=== PATIENT | female | born 1960 | race Caucasian/White ===

== ENCOUNTER 2023-01-14 16:06 | Outpatient (REF) | payer MEDICAID, SELFPAY ==
[2023-01-17 22:08] LABS: Varicella IgG Antibody >4000.00 index
== END 2023-01-14 16:07 | disposition home or self-care (01) ==
LOC: HO.HHCL 16:06
PROVIDERS: Visit Provider Nurse Practitioner Family
DX: Z01.84 Encounter for antibody response examination (principal)
CPT/HCPCS: 36415; 86787

== ENCOUNTER → 2023-09-22 10:48 | Outpatient (BNVA) | payer OTHER, SELFPAY | PROVIDERS: PCP Nurse Practitioner Family; Visit Provider Physician Assistant | DX: S46.912A Strain of unspecified muscle, fascia and tendon at shoulder and upper arm level, left arm, initial encounter (principal); S83.91XA Sprain of unspecified site of right knee, initial encounter; W18.30XA Fall on same level, unspecified, initial encounter | CPT/HCPCS: 73564; 99204 ==

== ENCOUNTER → 2023-09-26 08:23 | Outpatient (BNVA) | payer OTHER, SELFPAY | PROVIDERS: PCP Nurse Practitioner Family; Visit Provider Physician Assistant Medical | DX: S46.912A Strain of unspecified muscle, fascia and tendon at shoulder and upper arm level, left arm, initial encounter (principal); S83.91XA Sprain of unspecified site of right knee, initial encounter; W18.30XA Fall on same level, unspecified, initial encounter | CPT/HCPCS: 99213 ==

== ENCOUNTER 2024-11-13 14:34 | Outpatient (REF) | payer MEDICARE, OTHER, SELFPAY ==
--- NOTE | ~2024-11-13 | XR_ITS ---
EXAMINATION: XR KNEE 3 VIEWS LEFT HISTORY: left knee pain COMPARISON: There are no prior studies available for comparison. FINDINGS: Four views of the left knee are submitted. Osseous mineralization is normal. There is no fracture or dislocation. There is moderate to severe osteoarthritis of the patellofemoral compartment and mild to moderate osteoarthritis of the medial compartment, with joint space narrowing and osteophyte formation. The soft tissues are unremarkable. There is no joint effusion. XR/XR knee LT 3V IMPRESSION: Osteoarthritis of the left knee as described. Electronically signed by: Denis Golden MD 11/13/2024 03:48 PM EDT
--- OUTSIDE RECORDS SUMMARY | 2024-11-13 15:21 | XMS_ITS | Encounter Summary ---
Author Organization [employer] Address [address] [place] [address] Care Team Providers Care Rug Shampooer Name Role Phone Sofia Huertas Primary Care Provider [phone] Rosalia Richard NP Primary Care Provider [phone] Laney Gutierres MD Primary Care Provider [phone] Reason for Visit * Reason Onset Date Comments Referral 10/06/2023 Encounter Details Date Type Department Care Team (Late st Contact Info) Description 10/06/2023 Telephone [facility] MEDICINE [address], [place] [phone] Sofia Huertas FNP [address], [place] [phone] Referral Social History Tobacco Use Types Packs/Day Years Used Date Smoking Tobacco: Former Cigarettes 1 33 0 06/13/1979 - 06/19/2012 Passive Smoke Exposure: Past Smokeless Tobacco: Never Alcohol Use Standard Drinks/Week Comments Yes 14 (1 standard drink = 0.6 oz pu re alcohol) 2 glasses of wine nightly Alcohol Answer Date Recorded Q1: How often do you have a drink containing alc ohol? 5 07/23/2022 Q2: How many drinks containi ng alcohol do you have on a typical day when you are drinking? 1 07/23/2022 Q3: How often do you have six or more drinks on one occasion? 2 07/23/2022 Depression Answer Date Recorded Patient Health Questionnaire-9 Score 1 06/23/2022 Housing Stability Answer Date Recorded What is your housing situation today? I have elin rust 02/07/[address] you li ve. Do you have problems with any of the following? None of the above 02/07/2023 Food Insecurity Answer Date Recorded Within the past 12 months, y ou worried that your food would run out before you got money to buy more: Never True 02/07/2023 Within the past 12 months,th e food you bought just didn't last and you didn't have enough money to get more: Never True Transportation Answer Date Recorded In the past 12 months, has l ack of transportation kept you from medical appts, meetings, work or from getting things needed for daily living? No 02/07/2023 Utilities Answer Date Recorded In the past 12 months, has t he electric, gas, oil or water company threatened to shut off services in your home? No 02/07/2023 Depression Answer Date Recorded Patient Health Questionnaire-2 Score 1 06/23/2022 Comments Unknown Sex and Gender Information Value Date Recorded Sex Assigned at Female 02/15/2022 10:21 AM EDT Legal Sex Female 10:21 AM EDT Gender Identity Female 02/15/2022 10:21 AM EDT Sexual Orientation Choose not to disclose 2021 10:21 AM EDT documented as of this encounter Miscellaneous Notes * Telephone Encounter - Brenda Vasquez - 10/06/2023 2:15 PM EDT Tc from pt requesting status on cardiology referral. Requesting referral to be expedited due to recent ER visit a week ago. Please contact pt at [phone] documented in this encounter Plan of Treatment Upcoming Encounters Date Type Department Care Team (Late st Contact Info) Description 03/07/2025 10:00 AM EST Office Visit [facility] OPTOMETRY [address] [place], [place] [phone] Zahra Hall, MEERA [address] [place], [place] [phone] documented as of this encounter Visit Diagnoses Not on filedocumented in this encounter Additional Health Concerns Assessment Noted Time PHQ-9 Depression Total Score: 1 06/24/19 23 10:43 AM EST documented as of this encounter Care Teams Rug Shampooer Relationship Specialty Start Date End Date Sofia Huertas FNP [address] [place] [address] PCP - General Family Medicine 06/23/22 12/15/23 Rosalia Richard NP [address] [place] [address] PCP - General Family Medicine 12/16/23 06/27/24 Laney Gutierres MD [address] [place] [address] PCP - General Family Medicine 06/28/24 documented as of this encounter
--- OUTSIDE RECORDS SUMMARY | 2024-11-13 15:21 | XMS_ITS | Clinical Summary ---
Author Organization [facility] Address [address] [employer] [address] [address] Phone Care Team Providers Care Assistant General Manager Name Role Phone Anoop Nieves MD Primary Care Provider [phone] Pcp, Unknown Unavailable Unavailable Allergies Active Allergy Reactions Criticality Noted Date Comments Codeine Itching 07/06/2017 Meperidine Itching 07/06/2017 Erythromycin Rash Low 02/15/2018 Macrolide Antibiotics Other (See Comments) 09/23/2009 Difficulty swallowing Penicillins Rash Medium 07/06/2017 Oxycodone-Aspirin Itching 07/06/2017 Sulfa (Sulfonamide Antibiotics) Other (See Comments) 09/23/2009 Headache Azithromycin 05/22/2018 Medications lamoTRIgine (LAMICTAL XR) 200 mg TR24 Take 200 mg by mouth daily. Active buPROPion (WELLBUTRIN SR) 100 MG 12 hr tablet Take 100 mg by mouth 2 (two) times a day. Active carisoprodol (SOMA) 350 MG tablet Take 350 mg by mouth as needed. Active fluticasone propionate (FLONASE) 50 mcg/actuation nasal spray 1 spray by Nasal route daily. Active ZOLMitriptan (ZOMIG) 2.5 MG tablet Take 2.5 mg by mouth as needed for migraine. Active Medication-Free Text Vitamin D, oral, 1000 u 30 tablet 11 09/16/2015 Active Active Problems Problem Noted Date Diagnosed Date Malignant melanoma 02/15/2012 Overview (06/08/2014): Malignant melanoma Social History Tobacco Use Types Packs/Day Years Used Date Smoking Tobacco: Former Smokeless Tobacco: Never Education Answer Date Recorded Are you interested in more education? Not on zion e 08/21/2022 Are you concerned about learning? Not on file 08/21/2022 No 08/21/2022 No 08/21/2022 Digital Access Answer Date Recorded No 09/12/2022 No 09/12/2022 No 09/12/2022 Reliable internet access at home? Not on file 09/12/2022 Device with a working camera? Not on file Comments Unknown Sex and Gender Information Value Date Recorded Sex Assigned at Not on file Legal Sex Female 5:50 PM EST Gender Identity Not on file Sexual Orientation Not on file Plan of Treatment Health Maintenance Due Date Last Done Comments Adult Td,Tdap Booster 1960 LIPID PANEL 1960 DEPRESSION SCREENING 1970 SMOKING Hx and SMOKELESS TOB ACCO SCREENING 09/28/1971 HEPATITIS C SCREENING 1976 PNEUMOCOCCAL VACCINES (50+ y ears) (1 of 2 - PCV) 1977 ZOSTER VACCINES (1 of 2) 1977 MAMMOGRAM 1998 COLOGUARD 09/28/2003 COLONOSCOPY 09/28/2003 COLORECTAL CANCER SCREENING 09/28/2003 FIT TEST 09/28/2003 FOBT 09/28/2003 SIGMOIDOSCOPY 09/28/2003 VIRTUAL COLONOSCOPY 09/28/2003 OSTEOPOROSIS SCREENING INITI AL (ONE-TIME) 09/28/2023 COVID-19 VACCINE (2 - 2023-2 5 season) 2023 06/13/2020 RSV VACCINE (1 - 1-dose 75+ series) 2033 HEPATITIS A VACCINES Aged Out No long er eligible based on patient's age to complete this topic HIB VACCINES Aged Out No longer eligi ble based on patient's age to complete this topic MENINGOCOCCAL VACCINES (ACWY) Aged Out No longer eligible based on patient's age to complete this topic MENINGOCOCCAL VACCINES (B) Aged Out N o longer eligible based on patient's age to complete this topic Medical Devices Not on file Insurance C3 ACO C3 ACO Care Teams Assistant General Manager Relationship Specialty Start Date End Date Anoop Nieves MD [address] [facility] [address] [place] [address] PCP - General 08/22/14 Pcp, Unknown 08/22/14 Additional Source Comments The information contained in this document represents components of the legal health record. It is not the complete legal health record.[facility]
--- OUTSIDE RECORDS SUMMARY | 2024-11-13 15:21 | XMS_ITS | Clinical Summary ---
Author Organization [facility] [employer] [facility] Address [address] [place] [address] Phone Care Team Providers Care Stock Dealer Name Role Phone Laney Gutierres MD Primary Care Provider [phone] Allergies Active Allergy Reactions Criticality Noted Date Comments Aspirin 09/26/2024 Azithromycin 09/26/2024 Cefprozil 04/03/2018 Reaction not mentioned Codeine Hives 06/18/2024 Erythromycin Lactobionate 04/03/2018 Reaction not mentioned Erythromycin Stearate 10/08/2020 Lisinopril 09/26/2024 Macrolide Antibiotics 09/26/2024 Ketolides Meperidine 09/26/2024 Methocarbamol 04/03/2018 Reaction not mentioned Other 04/03/2018 Kdc:Yellow Dye+Aspirin+Oxycodone Reaction not mentioned Oxycodone 09/26/2024 Penicillins 04/03/2018 Reaction not mentioned Oxycodone-Aspirin Hives 06/18/2024 Sulfa (Sulfonamide Antibiotics) 04/03/2018 Reaction not mentioned Medications losartan (COZAAR) 25 mg tablet Take 1 tablet (25 mg total) by mouth 1 (one) time each day. Active buPROPion XL (WELLBUTRIN XL) 300 mg 24 hr tablet Take 1 tablet (300 mg total) by mouth 1 (one) time each day in the morning. Active nitroglycerin (NITROSTAT) 0.[address] 1 tablet (0.4 mg total) under the tongue every 5 (five) minutes if needed for chest pain. 4 12/13/19 25 Active fluticasone propionate (FLONASE) 50 mcg/actuation nasal spray Administer 2 sprays into each nostril 1 (one) time each day. Active lamoTRIgine (LaMICtal) 150 mg tablet Take 1 tablet (150 mg total) by mouth 1 (one) time each day. Active oxyBUTYnin XL (DITROPAN-XL) 15 mg 24 hr tablet Take 1 tablet (15 mg total) by mouth 1 (one) time each day. Active hydrocortisone 2.5 % ointment Apply topically 2 (two) times a day. Active acamprosate (CAMPRAL) 333 mg EC tablet Take 2 tablets (666 mg total) by mouth 3 (three) times a day. Do not crush, chew, or split. Active ketoconazole (NIZORAL) 2 % cream Apply topically 1 (one) time each day. Active Active Problems Problem Noted Date Diagnosed Date Benign essential HTN 11/08/2023 Chest pain 11/08/2023 Assessment & Plan (06/18/2024 8:26 AM EST): Patient with previously reported chest pain, she underwent a stress echocardiogram in November 2023 which was normal. Results were reviewed today. Patient denies recurrence of chest discomfort. She is active and denying any exertional anginal symptoms. Advised her to continue with going to the gym and going for walks. She will follow-up if symptoms recur otherwise continue follow-up with primary care physician. GERD without esophagitis 11/08/2023 ADD (attention deficit disorder) 04/03/2018 Back pain 04/03/2018 Migraine 04/03/2018 Bipolar disorder (CMS/HCC V24, CMS/HCC V28) 03/18 Post-nasal drip 03/17/2018 Pulmonary nodule 03/17/2018 Encounters Date Type Department Care Team Description 09/25/2024 Telephone Gastroenterology - [place] [address] [place] [address] Dianne Ledbetter MD special procedure from Last 3 Months Immunizations Name Administration Dates Next Due Moderna SARS-CoV-2 COVID-19, mRNA, LNP-S, preservative free 08/10/2021,04/02/2021,07/11/2020,2020 Surgical History Surgery Date Site/Laterality Comments OTHER SURGICAL HISTORY PROCEDURE: ---- OTHER ----; COMMENT: deviated septum repair OTHER SURGICAL HISTORY PROCEDURE: ---- OTHER ----; COMMENT: salpingo-oophorectomy APPENDECTOMY PROCEDURE: HISTORICAL APPENDECTOMY SECTION PROCEDURE: HISTORICAL DELIVERY OTHER SURGICAL HISTORY PROCEDURE: HISTORICAL MELANOMA Medical History Medical History Date Comments ADD (attention deficit disorder) 04/03/2018 DX:ADD (attention deficit disorder) History of melanoma 04/03/2018 DX:History o f melanoma; COMMENT: Sees derm q 6 months Migraine 04/03/2018 DX:Migraine Back pain 04/03/2018 DX:Back pain Bipolar disorder (CMS/HCC V2 4, CMS/HCC V28) 04/03/2018 DX:Bipolar disorder ([facility]) Family History Medical History Relation Name Comments Other: mitral valve prolapse Mother's side Relation Name Status Comments Mother's side Alive Social History Tobacco Use Types Packs/Day Years Used Date Smoking Tobacco: Former Smokeless Tobacco: Never Alcohol Use Standard Drinks/Week Comments Yes 0 (1 standard drink = 0.6 oz pur e alcohol) Comments Unknown Sex and Gender Information Value Date Recorded Sex Assigned at Female 07/02/2024 11:25 AM EDT Legal Sex Female 8:29 PM EST Gender Identity Female 07/02/2024 11:25 AM EDT Sexual Orientation Not on file Obstetrics History Last Filed Vital Signs Vital Sign Reading Time Taken Comments Blood Pressure 130/80 06/18/2024 8:01 AM EST Pulse 80 06/18/2024 8:01 AM EST Temperature - - Respiratory Rate - - Oxygen Saturation 95% 06/18/2024 8:01 AM EST Inhaled Oxygen Concentration - - Weight 81.6 kg (180 lb) 06/18/2024 8:01 AM EST Height 166.4 cm (5' 5.5 ) 06/18/2024 8:01 AM EST Body Mass Index 29.5 06/18/2024 8:01 AM EST Plan of Treatment Upcoming Encounters Date Type Department Care Team (Late st Contact Info) Description 12/21/2024 11:45 AM EDT Appointment [facility] CT Scan [address] [place] [address] Health Maintenance Due Date Last Done Comments Zoster Vaccines (1 of 2) 2008 Colorectal Cancer Screening: Colonoscopy 03/20/2022 Hepatitis C Screening 03/20/2022 Medicare Annual Wellness Visit 03/20/2022 Osteoporosis Screening (Bone Density Screening) 03/20/2022 Social Influencers of Health Screening 03/20/2022 Falls Risk Assessment 09/28/2023 Hypertension/CHF/CAD Annual BMP Blood Test 11/11/2023 Depression Screening 04/18/2024 COVID-19 Vaccine ( season) 2024 02/21/2024, 03/21/2023, 04/06/2022, Additional history exists Influenza Vaccine (#1) 2024 , 03/06/2023, 02/01/2022, Additional history exists Lung Cancer Screening (Low Dose CT) 12/20/2024 12/21/2023, 12/21/2023, 12/08/2022, Additional history exists Breast Cancer Screening 11/28/2025 11/29/19 24, 11/25/2022, 08/25/2021, Additional history exists Cholesterol Screening (Lipid Panel) 06/24/2027 06/23/2022 DTaP,Tdap,and Td Vaccines (2 - Td or Tdap) 02/02/2032 02/01/2022 RSV Immunization Adult Patients Completed 02/04/2023 Pneumococcal Vaccine: 50+ Years Completed 11/21/2023 HIB Vaccines Aged Out No longer eligi ble based on patient's age to complete this topic HPV Vaccines Aged Out No longer eligi ble based on patient's age to complete this topic Hepatitis A Vaccines Aged Out No long er eligible based on patient's age to complete this topic Hepatitis B Vaccines Aged Out No long er eligible based on patient's age to complete this topic IPV Vaccines Aged Out No longer eligi ble based on patient's age to complete this topic MMR Vaccines Aged Out No longer eligi ble based on patient's age to complete this topic Meningococcal ACWY Vaccine Aged Out N o longer eligible based on patient's age to complete this topic Meningococcal B Vaccine Aged Out No l onger eligible based on patient's age to complete this topic RSV Immunization Patients Under 20 months Aged Out No longer eligible based on patient's age to complete this topic Varicella Vaccines Aged Out No longer eligible based on patient's age to complete this topic Procedures Procedure Name Priority Date/Time Associated Diagnosis Comments CT LUNG SCREENING LOW DOSE Routine 12/21/2023 5:33 PM EDT Encounter for screening for malignant neoplasm of respiratory organs BRIDGETTE SCREENING DIGITAL Routine 11/29/2023 8:38 AM EDT Encounter for screening mammogram for malignant neoplasm of breast from Last 3 Months or Most Recently Relevant to Health Maintenance Results * CT LUNG SCREENING LOW DOSE (12/21/2023 5:33 PM EDT) Anatomical Region Laterality Modality Computed Tomogra phy 12/21/2023 4:07 PM EDT Narrative 12/21/2023 5:33 PM EDT [facility] Diagnostic Imaging Department [address] [place] [address] Patient: ELAINE BELLAMYTONY HernandezB./Age/Sex: 1960 - 63 - F Unit#: [id number] Location/Status: BHAVNA/YRN CLI Mnemonic/Ordering Site: [facility] Ordering Physician: ARIA HENDERSON MD CT Lung Screening Low Dose - 12/21/23 - 1611 Report Status:Signed PROCEDURE: Chest CT INDICATION: Lung cancer screening, former smoker, 45 pack years smoking history TECHNIQUE: Chest CT without contrast. Multi planar reformats were created and interpreted. The examination was performed utilizing dose reduction techniques. Total DLP 167 COMPARISON: 12/02/2022 FINDINGS: LUNGS/PLEURA: Central airways are patent. Elevated right diaphragm with right greater than left basilar atelectasis. Scattered calcified granulomas throughout the lungs are unchanged. No new or suspicious pulmonary nodules. No pleural effusion or pneumothorax. MEDIASTINUM: Thyroid gland is unremarkable. No mediastinal or hilar lymphadenopathy. Cardiac chambers are normal in size. No pericardial effusion. Esophagus is normal. CHEST WALL: No axillary lymphadenopathy or superficial hematoma. UPPER ABDOMEN:Large central hepatic cyst it is unchanged. BONES: Chronic T7 superior endplate deformity. No acute fracture. Mild degenerative changes seen throughout the bones. IMPRESSION: No new or suspicious pulmonary nodules. Lung RADS 1-negative. Recommend continued screening with low-dose chest CT in 12 months. Dictating Physician: DILAN DUMONT MD Electronically Signed by: DILAN DUMONT MD Dic Date/Time: 12/21/231722 Sign date/Time: 12/21/231732 Procedure Note Dilan Dumont MD - 02/01/2024 [facility] Diagnostic Imaging Department [address] [place] [address] Patient: ELÍASTHANGELMIRA./Age/Sex: 1960 - 63 - F Unit#: [id number] Location/Status: SPDICATLS/REG CLI Mnemonic/Ordering Site: [facility] Ordering Physician: ARIA HENDERSON MD CT Lung Screening Low Dose - 12/21/23 - 1611 Report Status:Signed PROCEDURE: Chest CT INDICATION: Lung cancer screening, former smoker, 45 pack years smokinghistory TECHNIQUE: Chest CT without contrast. Multi planar reformats were createdand interpreted. The examination was performed utilizing dose reductiontechniques. Total DLP 167 COMPARISON: 12/02/2022 FINDINGS: LUNGS/PLEURA: Central airways are patent. Elevated right diaphragm withright greater than left basilar atelectasis. Scattered calcified granulomas throughout the lungs are unchanged. No new or suspicious pulmonarynodules. No pleural effusion or pneumothorax. MEDIASTINUM: Thyroid gland is unremarkable. No mediastinal or hilar lymphadenopathy. Cardiac chambers are normal in size. No pericardialeffusion. Esophagus is normal. CHEST WALL: No axillary lymphadenopathy or superficial hematoma. UPPER ABDOMEN:Large central hepatic cyst it is unchanged. BONES: Chronic T7 superior endplate deformity. No acute fracture. Mild degenerative changes seen throughout the bones. IMPRESSION: No new or suspicious pulmonary nodules. Lung RADS 1-negative. Recommend continued screening with low-dose chest CT in 12 months. Dictating Physician: DIALN DUMONT MD Electronically Signed by: DILAN DUMONT MD Dic Date/Time: 12/21/23 172 Sign date/Time: 12/21/23 173 Aria Henderson MD IM CT PROCEDURES Final Result * BRIDGETTE SCREENING DIGITAL (11/29/2023 8:38 AM EDT) Anatomical Region Laterality Modality Mammography 11/29/2023 7:57 AM EDT Narrative 11/29/2023 8:38 AM EDT [facility] Diagnostic Imaging Department [address] [place] [address] Patient: ELMIRA BELLAMY D.O.B./Age/Sex: 1960 - 63 - F Unit#: [id number] Location/Status: SPDIMAM/REG CLI Mnemonic/Ordering Site: [facility] Ordering Physician: SOFIA HUERTAS Bridgette Screening Digital - 11/29/23829 Report Status:Signed HISTORY: The patient is a 63-year-old female presenting for routine screening mammography. FINDINGS: Full-field digital mammography of the breasts bilaterally consisting of tomosynthesis in MLO and CC projection is performed in the [employer] 2000-D unit. Computer aided detection utilizing the Volofy system was utilized. The breasts are again seen to be composed of a combination of fatty and fibroglandular elements (scattered areas of fibroglandular density, category B density as calculated with docTrackrpara software), as also demonstrated on prior studies most recently 11/25/2022 and most remotely 10/05/2016. There is no cluster of microcalcifications, mass, or area of architectural distortion. There is no skin thickening or nipple retraction. IMPRESSION: No mammographic evidence of malignancy. A negative mammogram in the presence of a clinically suspicious palpable abnormality does not preclude the possibility of malignancy or alter the indications for biopsy. BIRADS Code Class 1: Negative PQRI CPT II 3341F Code 29167, 55971 PQRI 225 CPT II 7025F Dictating Physician: TYLER LOZADA MD Electronically Signed by: TYLRE LOZADA MD Dic Date/Time: 11/29/23832 Sign date/Time: 11/29/23837 Procedure Note Tyler Lozada MD - 02/01/2024 [facility] Diagnostic Imaging Department [address] [place] [address] Patient: ZAYDAEDENILSONELMIRA /Age/Sex: 1960 - 63 - F Unit#: [id number] Location/Status: SPDIMAM/REG CLI Mnemonic/Ordering Site: [facility] Ordering Physician: SOFIA HUERTAS Bridgette Screening Digital - 11/29/23 - 829 Report Status:Signed HISTORY: The patient is a 63-year-old female presenting for routinescreening mammography. FINDINGS: Full-field digital mammography of the breasts bilaterallyconsisting of tomosynthesis in MLO and CC projection is performed in the [employer] 2000-D unit. Computer aided detection utilizing the iCAD system wasutilized. The breasts are again seen to be composed of a combination of fatty and fibroglandular elements (scattered areas of fibroglandular density,category B density as calculated with Lat49 Volpara software), as also demonstratedon prior studies most recently 11/25/2022 and most remotely 10/05/2016. Thereis no cluster of microcalcifications, mass, or area of architectural distortion.There is no skin thickening or nipple retraction. IMPRESSION: No mammographic evidence of malignancy. A negative mammogram in the presence of a clinically suspicious palpable abnormality does not preclude the possibility of malignancy or alter the indications for biopsy. BIRADS Code Class 1: Negative PQRI CPT II 3341F Code 83881, 17612 PQRI 225 CPT II 7025F Dictating Physician: TYLER LOZADA MD Electronically Signed by: TYLER LOZADA MD Dic Date/Time: 11/29/23832 Sign date/Time: 11/29/23837 Sofia Huertas IM BI PROCEDURES Final Result from Last 3 Months or Most Recently Relevant to Health Maintenance Insurance MEDICARE MEDICAID - [place] Care Teams Stock Dealer Relationship Specialty Start Date End Date Laney Gutierres MD [address] [place] [address] PCP - General Subassembly Assembler 09/25/24
--- OUTSIDE RECORDS SUMMARY | 2024-11-13 15:21 | XMS_ITS | Patient Health Record ---
Author Organization [facility] Address [address] [place] [address] [address] [place], [place] [id number] Care Team Providers Care Knitting Supervisor Name Role Phone Anoop Nieves MD Primary Care Provider Unavaila Ivory Borden Unavailable [phone] Allergies Allergen (clinical drug ingredient) Drug/Non Drug Allergy documented on EMR Reaction Allergy Type Onset Date Status erythromycin Erythromycin hives Drug Allergy A ctive Percodan hives Drug Allergy Active sulfa hives Drug Allergy Active Penicillin hives Drug Allergy Active codeine Codeine hives Drug Allergy Active Reason For Referral No Information Medications Medication SIG (Take, Route, Frequency, Duration) Notes Start Date End Date Status LaMICtal 150 MG 1 tablet Orally once a day Active [facility] Allergy Relief-D 5-120 MG TAKE 1 TABLET BY MOUTH EVERY 12 HOURS NEEDED FOR ALLERGY Oral; Duration: 10 Active buPROPion HCl ER (XL) 150 MG TAKE 1 TABLET BY MOUTH EVERY DAY Oral; Duration: 90 Active oxyBUTYnin Chloride ER 15 MG TAKE 1 TABLET BY MOUTH ONCE DAILY Oral; Duration: 90 Active CPAP DX: PAUL G47.33 as directed auto C PAP 5-20 cm H2o, fit for mask SIG DATE:07/27/18 During sleep nightly for the treatment of sleep apnea; Duration: lifetime 07/27/2018 Active Problems Problem Type SNOMED Code ICD Code Onset Dates Problem Status W/U Status Risk Notes Problem Obstructive sleep apnea syndrome (23253509) PAUL (obstructive sleep apnea) (G47.33) Active confirmed Problem Hypersomnia (53366791) Hypersomnia (G47.10) Active confirmed Problem Obese class I (finding) (310908202162918 ) Obesity (BMI 30.0-34.9) (E66.9) Active confirmed Problem Bipolar 1 disorder (328180960) Bipolar 1 disorder (F31.9) Active confirmed Problem Drug allergy (999689362) History of allergy (Z88.9) Active confirmed Plan Of Treatment No Information Insurance Providers Payer Name Payer Address Payer Phone Subscriber Number Group Number Insured Name Patient Relationship to Insured Coverage Start Date Coverage End Date George JOHNSON [address] [place], [place] [phone] [id number] Elmira Bellamy Self - patient is the insured Medical (General) History Medical History History ICD Code Bipolar 1 disorder F31.9 History of allergy Z88.9 PAUL (obstructive sleep apnea) G47.33 Surgical History Surgery Date(Month/Year) Tonsillectomy/Adenoidectomy Appendectomy Septoplasty section Oopherectomy, bilateral Melanoma excision Hospitalization History Reason Date(Month/Year) ED visit for allergy 12/2017
== END 2024-11-13 14:35 | disposition home or self-care (01) ==
LOC: HO.HHCX 14:34
PROVIDERS: PCP Internal Medicine; Visit Provider Internal Medicine
DX: M17.12 Unilateral primary osteoarthritis, left knee (principal)
CPT/HCPCS: 73562

== ENCOUNTER → 2024-11-13 14:44 | Outpatient (BNV) | payer MEDICARE, MEDICAID, SELFPAY | PROVIDERS: PCP Internal Medicine; Visit Provider Radiology Diagnostic Radiology | DX: M17.12 Unilateral primary osteoarthritis, left knee (principal) | CPT/HCPCS: 73562 ==

== ENCOUNTER 2025-03-22 18:47 | Outpatient (REF) | payer MEDICARE, OTHER, SELFPAY ==
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
--- OUTSIDE RECORDS SUMMARY | 2025-03-22 20:04 | XMS_ITS | Clinical Summary ---
Author Organization [facility] Address [address] [facility] [address] [place] [phone] Phone Care Team Providers Care Presentation Manager Name Role Phone Anoop Nieves MD Primary Care Provider [phone] Pcp, Unknown Unavailable Unavailable Allergies Active Allergy [...] DEPRESSION SCREENING 1970 SMOKING Hx and SMOKELESS TOBACCO SCREENING 09/28/1971 HEPATITIS C SCREENING 1976 PNEUMOCOCCAL VACCINES (50+ years) (1 of 2 - PCV) 1977 ZOSTER VACCINES (1 of 2) 1977 MAMMOGRAM 1998 COLOGUARD 09/28/2003 COLONOSCOPY 09/28/2003 COLORECTAL CANCER SCREENING 09/28/2003 FIT TEST 09/28/2003 FOBT 09/28/2003 SIGMOIDOSCOPY 09/28/2003 VIRTUAL COLONOSCOPY 09/28/2003 OSTEOPOROSIS SCREENING INITIAL (ONE-TIME) 09/28/2023 INFLUENZA VACCINE (#1) 2024 0, 12/25/2018, 02/04/2017, Additional history exists COVID-19 VACCINE (2 - 2024- season) 2024 06/13/2020 RSV VACCINE (1 - 1-dose 75+ [...] on file Insurance C3 ACO C3 ACO C3 ACO C3 ACO C3 ACO C3 ACO C3 ACO Care Teams Presentation Manager Relationship Specialty Start Date End Date Anoop Nieves MD [address] [facility] [address] [place] [address] PCP - General 08/22/14 Pcp, Unknown 08/22/14 Additional Source Comments The information contained in this document represents components of the legal health record. It is not the complete legal health record.[facility]
--- OUTSIDE RECORDS SUMMARY | 2025-03-22 20:04 | XMS_ITS | Encounter Summary ---
Author Organization [employer] Address [address] [place] [address] Care Team Providers Care Gasoline Dragline Operator Name Role Phone Laney Gutierres MD Primary Care Provider [phone] Encounter Details Date Type Department Care Team (Latest Contact Info) Description 03/22/2025 Travel Social History Tobacco Use Types Packs/Day Years [...] AM EDT documented as of this encounter Plan of Treatment Upcoming Encounters Date Type Department Care Team (Late st Contact Info) Description 05/15/2025 9:00 AM EST Office Visit [facility] [address] [place] [address] Laney Gutierres MD [address] [place] [address] documented as of this encounter Visit Diagnoses Not on filedocumented in this encounter Additional Health Concerns Assessment Noted Time PHQ-9 Depression Total Score: 2 09/20/19 3:01 PM EDT documented as of this encounter Care Teams Gasoline Dragline Operator Relationship Specialty Start Date End Date Laney Gutierres MD [address] [place] [address] PCP - General Family Medicine 06/28/24 documented as of this encounter
--- OUTSIDE RECORDS SUMMARY | 2025-03-22 20:04 | XMS_ITS | Clinical Summary ---
Author Organization [facility] [employer] [facility] Address [address] [place] [address] Phone Care Team Providers Care Supervisor [employer] Name Role Phone Laney Gutierres MD Primary Care Provider [phone] Allergies Active Allergy Reactions Criticality Noted Date Comments Aspirin 09/26/2024 Azithromycin 09/26/2024 Cefprozil 04/03/2018 Reaction not mentioned Codeine Hives 06/18/2024 Erythromycin Lactobionate 04/03/2018 Reaction not mentioned Erythromycin Stearate 10/08/2020 Hydrocodone-Acetaminophen 01/09/2025 Lisinopril 09/26/2024 Macrolide Antibiotics 09/26/2024 Ketolides Meperidine [...] time each day in the morning. Active fluticasone propionate (FLONASE) 50 mcg/actuation nasal spray Administer 2 sprays into each nostril 1 (one) time each day. Active lamoTRIgine (LaMICtal) 150 mg tablet Take 1 tablet (150 mg total) by mouth 1 (one) time each day. Active oxyBUTYnin XL (DITROPAN-XL) 15 mg 24 hr tablet Take 1 tablet (15 mg total) by mouth 1 (one) time each day. Active acamprosate (CAMPRAL) 333 mg EC tablet Take 2 tablets (666 mg total) by mouth 3 (three) times a day. Do not crush, chew, or split. Active ketoconazole (NIZORAL) 2 % shampoo APPLY TO SCALP TWICE WEEKLY, LEAVE ON 5 MINUTES THEN WASH OFF 5 Active polyethylene glycol (Golytely) 236-22.74-6.74 -5.86 gram solution Take 4L by mouth once for one dose. May substitue any PEG. Starting at 2PM the day before your procedure drink 1 8oz glasses at your own pace until you complete half of the gallon. Finish 2nd half of the gallon at 8PM. 4000 mL 5 Active bisacodyL (DULCOLAX) 5 mg EC tablet Take 2 tablets by mouth right before beginning bowel prep. See instructions provided by the office 2 tablet 5 Active nitroglycerin (NITROSTAT) 0.[address] 1 tablet (0.4 mg total) under the tongue every 5 (five) minutes if needed for chest pain. 4 025 Discontin ued(Patie nt Discharge ) hydrocortisone 2.5 % ointment Apply topically 2 (two) times a day. 025 Discontin ued(Patie nt Discharge ) ketoconazole (NIZORAL) 2 % cream Apply topically 1 (one) time each day. 025 Discontin ued(Patie nt Discharge ) Active Problems Problem Noted Date Diagnosed Date Arthritis of left knee 11/10/2024 Rash 11/10/2024 Uncomplicated alcohol dependence (CMS/HCC V24, C MS/HCC V28) 09/19/2024 Obstructive sleep apnea 11/21/2023 Benign essential HTN 11/08/2023 Chest pain 11/08/2023 [...] primary care physician. 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 Chronic low back pain 06/23/2022 Status post bilateral salpingo-oophorectomy (BSO ) 06/23/2022 ADD (attention deficit disorder) 04/03/2018 Back pain 04/03/2018 Migraine 04/03/2018 Bipolar disorder ([facility] V24, [facility] V28) 03/18 Post-nasal drip 03/17/2018 Pulmonary nodule 03/17/2018 Malignant melanoma ([facility] V24, [facility] V28) Overview (02/25/2025): Malignant melanoma Encounters Date Type Department Care Team Description 03/05/2025 Results Follow-Up Gastroenterology - [address] [phone] Huy Machado MD 03/04/2025 10:19 AM EST Anesthesia Event [facility] Endoscopy [address] [place] [phone] Luciana Breen MD Pierce, Trudy A, CRNA 03/04/2025 9:01 AM EST - 03/04/2025 11:59 PM EST Hospital Encounter [facility] Endoscopy [address] [place] [phone] Huy Machado MD Pierce, Trudy A, CRNA Dasilva, John E, MD Colon cancer screening Discharge Disposition: Home or Self Care 03/01/2025 Telephone Gastroenterology - [address] [phone] Huy Machado MD 02/25/2025 3:45 PM EST Office Visit Pulmonology - [place] [address] [phone] Aquiles Johnson MD Obstructive sleep apnea (Primary Dx) 02/21/2025 Telephone Pulmonology [facility] [address] [phone] Aquiles Johnson MD 02/19/2025 Telephone Pulmonology [facility] [address] [phone] Aquiles Johnson MD 02/08/2025 Telephone Pulmonology [facility] [address] [phone] Aquiles Johnson MD 01/23/2025 8:10 AM EDT - 01/23/2025 11:59 PM EDT Hospital Encounter [facility] [address] [place] [phone] Encounter for screening mammogram for malignant neoplasm of breast Discharge Disposition: Home or Self Care 01/09/2025 Telephone Gastroenterology [facility] [address] [phone] Huy Machado MD 01/03/2025 10:40 AM EDT - 01/03/2025 11:59 PM EDT Hospital Encounter [facility] CT Scan [address] [place] [phone] Encounter for screening for malignant neoplasm of respiratory organs; Personal history of nicotine dependence Discharge Disposition: Home or Self Care from Last 3 Months Immunizations Immunization Administration Dates Next Due Moderna SARS-CoV-2 COVID-19, mRNA, LNP-S, preservative free 08/10/2021,04/02/2021,07/11/2020,2020 Surgical History Surgery Date Site/Laterality Comments OTHER SURGICAL HISTORY PROCEDURE: ---- OTHER ----; COMMENT: deviated septum repair OTHER SURGICAL HISTORY PROCEDURE: ---- OTHER ----; COMMENT: salpingo-oophorectomy APPENDECTOMY PROCEDURE: HISTORICAL APPENDECTOMY SECTION PROCEDURE: HISTORICAL DELIVERY OTHER SURGICAL HISTORY PROCEDURE: HISTORICAL MELANOMA COLONOSCOPY Medical History Medical History Date Comments ADD (attention deficit disorder) 04/03/2018 DX:ADD (attention deficit disorder) History of melanoma 04/03/2018 DX:History o f melanoma; COMMENT: Sees derm q 6 months Migraine 04/03/2018 DX:Migraine Back pain 04/03/2018 DX:Back pain Bipolar disorder ([facility] V2 4, [facility] V28) 04/03/2018 DX:Bipolar disorder ([facility]) Migraine Hypertension GERD (gastroesophageal reflux disease) Bipolar 1 disorder ([facility] V24, [facility] V28) Sleep apnea Family History Medical History Relation Name Comments Breast cancer Maternal Grandmother Other: mitral valve prolapse Mother's side Relation Name Status Comments Maternal Grandmother Mother's side Alive Social History Tobacco Use Types Packs/Day Years Used Date Smoking Tobacco: Former Smokeless Tobacco: Never Tobacco Cessation:Counseling Given: Not Answered Alcohol Use Standard Drinks/Week Comments Yes 0 (1 standard drink = 0.6 oz pur e alcohol) SOCIAL Interpersonal Safety Answer Date Record ed Physical Abuse Unrecognized value 03/04/2025 Verbal Abuse Unrecognized value 03/04/2025 Comments No Sex and Gender Information Value Date Recorded Sex Assigned at Female 07/02/2024 11:25 AM EDT Legal Sex Female 8:29 PM EST Gender Identity Female 07/02/2024 11:25 AM EDT Sexual Orientation Not on file Obstetrics History Para Term AB IAB SAB Ectopic Multiple Livin g Live Births 4 Last Filed Vital Signs Vital Sign Reading Time Taken Comments Blood Pressure 132/87 03/04/2025 10:59 AM EST Pulse 73 03/04/2025 10:59 AM EST Temperature 36.6 C (97.9 F) 03/04/2025 10:39 AM EST Respiratory Rate 20 03/04/2025 10:59 AM EST Oxygen Saturation 98% 03/04/2025 10:59 AM EST Inhaled Oxygen Concentration - - Weight 80.7 kg (178 lb) 03/04/2025 9:41 AM EST Height 166.4 cm (5' 5.5 ) 03/04/2025 9:41 AM EST Body Mass Index 29.17 03/04/2025 9:41 AM EST Plan of Treatment Upcoming Encounters Date Type Department Care Team (Late st Contact Info) Description 05/30/2025 8:45 AM EST Office Visit Pulmonology - [address] [place] [phone] Aquiles Johnson MD [facility] [place] [phone] Health Maintenance Due Date Last Done Comments Hepatitis A Vaccines (1 of 2 - Risk 2-dose series) 1977 Zoster Vaccines (1 of 2) 2008 Hepatitis C Screening 03/20/2022 Medicare Annual Wellness Visit 03/20/2022 Osteoporosis Screening (Bone Density Screening) 03/20/2022 Social Influencers of Health Screening 03/20/2022 Hypertension/CHF/CAD Annual BMP Blood Test 11/11/2023 Depression Screening 04/18/2024 COVID-19 Vaccine ( season) 2025 01/04/2025, 02/21/2024, 03/21/2023, Additional history exists Lung Cancer Screening (Low Dose CT) 01/03/2026 01/03/2025, 01/03/2025, 01/06/2024, Additional history exists Falls Risk Assessment 03/04/2026 03/04/2025 Breast Cancer Screening 01/23/2027 01/24/20, 11/29/2023, 11/25/2022, Additional history exists Cholesterol Screening (Lipid Panel) 06/24/2027 06/23/2022 DTaP,Tdap,and Td Vaccines (2 - Td or Tdap) 02/02/2032 02/01/2022 Colorectal Cancer Screening: Colonoscopy 03/04/2035 03/04/2025 RSV Immunization Adult Patients Completed 02/04/2023 Pneumococcal Vaccine: 50+ Years Completed 11/21/2023 Influenza Vaccine Completed 01/04/2025, , 03/06/2023, Additional history exists HIB Vaccines Aged Out No longer eligi [...] Procedure Name Priority Date/Time Associated Diagnosis Comments TISSUE EXAM Routine 03/04/2025 10:36 AM EST Colon cancer screening COLONOSCOPY Routine 03/04/2025 10:14 AM EST Colon cancer screening MG MAMMO DIGITAL SCREENING W JONATHAN BILAT Routine 01/23/2025 8:53 AM EDT Encounter for screening mammogram for malignant neoplasm of breast CT LUNG SCREENING Routine 01/03/2025 11: 20 AM EDT Encounter for screening for malignant neoplasm of respiratory organs Personal history of nicotine dependence from Last 3 Months Results * Tissue exam (03/04/2025 10:36 AM EST) Final Diagnosis Rectum, polyp: Hyperplastic polyp. 03/05/2025 11:54 AM [facility] at 1154 EST Gross Description A. Large Intestine, Rectum, polyp: Labeled LI rectum polyp . Received in formalin, is an approximately 0.6 cm in greatest diameter soft to rubbery, crandall tissue fragment, which is inked green at the margin, bisected, wrapped in paper and submitted entirely in one cassette, two pieces, multiple levels. av/DG. 03/05/2025 11:54 AM [facility] Disclaimer Unless otherwise specified, all tissue is 10% NB formalin fixed and paraffin embedded. 03/05/2025 11:54 AM [facility] Tissue Rectum structure / Unknown 03/04/2025 10:36 AM EST 03/04/2025 11:34 AM EST us Huy Machado MD LAB PATHOLOGY ORDERABLES Fi nal Result [facility]) [facility] [address] [place] [address], * COLONOSCOPY Anesthesia - MAC; [facility] ENDOSCOPY (03/04/2025 10:14 AM EST) Anatomical Region Laterality Modality Endoscopy 03/04/2025 10:1 4 AM EST Impressions 03/04/2025 10:42 AM EST - Diverticulosis in the sigmoid colon. - One 6 mm polyp in the proximal rectum, removed with a cold snare. Resected and retrieved. - The examination was otherwise normal on direct and retroflexion views. Recommendation: - Await pathology results. - Repeat colonoscopy in 5 years for surveillance. Narrative 03/04/2025 10:42 AM EST [facility] GI Patient Name: Elmira Bellamy Procedure Date: 03/04/2025 10:14 AM Date of : 1960 Age: 64 Room: ROOM 15 Gender: Female Note Status: Finalized Attending MD: Huy Machado MD, Procedure Date No Time: 03/04/2025 Procedure: Colonoscopy Indications: Screening for colorectal malignant neoplasm Providers: Huy Machado MD Referring MD: Huy Machado MD Medicines: Propofol per Anesthesia Complications: No immediate complications. Estimated Blood Loss: Estimated blood loss was minimal. Procedure: Pre-Anesthesia Assessment: - ASA Grade Assessment: II - A patient with mild systemic disease. After I obtained informed consent, the scope was passed under direct vision. Throughout the procedure, the patient's blood pressure, pulse, and oxygen saturations were monitored continuously.The Colonoscope was introduced through the anus and advanced to the cecum, identified by appendiceal orifice and ileocecal valve. The colonoscopy was performed without difficulty. The patient tolerated the procedure well. The quality of the bowel preparation was good. Findings: The perianal and digital rectal examinations were normal. Multiple diverticula were found in the sigmoid colon. A 6 mm polyp was found in the proximal rectum. The polyp was sessile. The polyp was removed with a cold snare. Resection and retrieval were complete. The exam was otherwise without abnormality on direct and retroflexion views. Procedure Code(s): --- Professional --- 67581, Colonoscopy, flexible; with removal of tumor(s), polyp(s), or other lesion(s) by snare technique Diagnosis Code(s): --- Professional --- Z12.11, Encounter for screening for malignant neoplasm of colon D12.8, Benign neoplasm of rectum K57.30, Diverticulosis of large intestine without perforation or abscess without bleeding CPT copyright 2020 [employer]. All rights reserved. The codes documented in this report are preliminary and upon associate dentist review may be revised to meet current compliance requirements. Huy Machado MD 03/04/2025 10:42:37 AM This report has been signed electronically.Huy Machado MD Number of Addenda: 0 Note Initiated On: 03/04/2025 10:14 AM Scope In: Scope Out: Endoscopy Department at [facility] - [address] [place] [phone] Procedure Note Huy Machado MD - 03/04/2025 [facility] GI Patient Name: Elmira Bellamy Procedure Date: 03/04/2025 10:14 AM Date of : 1960 Age: 64 Room: ROOM 15 Gender: Female Note Status: Finalized Attending MD: Huy Machado MD, Procedure Date No Time: 03/04/2025 Procedure: Colonoscopy Indications: Screening for colorectal malignant neoplasm Providers: Huy Machado MD Referring MD: Huy Machado MD Medicines: Propofol per Anesthesia Complications: No immediate complications. Estimated Blood Loss: Estimated blood loss was minimal. Procedure: Pre-Anesthesia Assessment: - ASA Grade Assessment: II - A patient with mild systemic disease. After I obtained informed consent, the scope was passed under direct vision. Throughout theprocedure, the patient's blood pressure, pulse, and oxygen saturations were monitored continuously.The Colonoscope was introduced through the anus and advanced to the cecum, identified by appendiceal orifice and ileocecal valve. The colonoscopy was performed without difficulty. The patient tolerated the procedure well. The quality of the bowel preparation was good. Findings: The perianal and digital rectal examinations were normal. Multiple diverticula were found in the sigmoidcolon. A 6 mm polyp was found in the proximal rectum. The polyp was sessile. The polyp was removed with acold snare. Resection and retrieval were complete. The exam was otherwise without abnormality ondirect and retroflexion views. Procedure Code(s): --- Professional --- 49611, Colonoscopy, flexible; with removal of tumor(s), polyp(s), or other lesion(s) by snare technique Diagnosis Code(s): --- Professional --- Z12.11, Encounter for screening for malignantneoplasm of colon D12.8, Benign neoplasm of rectum K57.30, Diverticulosis of large intestine without perforation or abscess without bleeding CPT copyright 2020 [employer]. All rights reserved. The codes documented in this report are preliminary and upon associate dentist reviewmay be revised to meet current compliance requirements. Huy Machado MD 03/04/2025 10:42:37 AM This report has been signed electronically.Huy Machado MD Number of Addenda: 0 Note Initiated On: 03/04/2025 10:14 AM Scope In: Scope Out: Endoscopy Department at [facility] - [address] [place] [phone] IMPRESSION: - Diverticulosis in the sigmoid colon. - One 6 mm polyp in the proximal rectum, removedwith a cold snare. Resected and retrieved. - The examination was otherwise normal on directand retroflexion views. Recommendation: - Await pathology results. - Repeat colonoscopy in 5 years for surveillance. Huy Machado MD GI~PROCEDURE ORDERABLES Fin al Result * [facility] Mammo Digital Screening w Jonathan bilat (01/23/2025 8:53 AM EDT) Anatomical Region Laterality Modality Breast Bilateral Mammography 01/23/2025 8:52 AM EDT Impressions 01/23/2025 11:38 AM EDT No mammographic evidence of malignancy. No suspicious interval change. A negative mammogram in the presence of a clinically suspicious palpable abnormality does not preclude the possibility of malignancy or alter the indications for biopsy. ASSESSMENT: BI-RADS 1: NEGATIVE RECOMMENDATION(S): 1: Routine screening mammogram BILATERAL in 1 year. [facility] location[facility] [address], [address] -------- FINAL REPORT -------- Dictated By: Roque Costa Dictated Date: 01/23/2025 08:52 ET Assigned Physician: Roque Costa Reviewed and Electronically Signed By: Roque Costa Signed Date: 01/23/2025 11:38 ET Workstation ID: [id number] Transcribed By: Self Edit Transcribed Date: 01/23/2025 08:52 ET Narrative 01/23/2025 11:38 AM EDT EXAM: SCREENING MAMMOGRAPHY, BILATERAL HISTORY: SCREENING. Maternal grandmother with history of breast cancer. COMPARISON: 11/29/23, 11/25/22, 08/24/21 TECHNIQUE: Synthesized CC and MLO projections of each breast. Tomosynthesis of each breast in the CC and MLO projections. ADDITIONAL IMAGING: None Computer-aided detection was employed with the [employer] AI 3-D. TISSUE DENSITY: There are scattered areas of fibroglandular density. (BI-RADS category B) FINDINGS: RIGHT BREAST: No suspicious mass. No suspicious calcification. No distortion. No additional suspicious right breast findings LEFT BREAST: No suspicious mass. No suspicious calcification. No distortion. No additional suspicious left breast findings Procedure Note Roque Costa MD - 01/23/2025 EXAM: SCREENING MAMMOGRAPHY, BILATERAL HISTORY: SCREENING. Maternal grandmother with history of breastcancer. COMPARISON: 11/29/23, 11/25/22, 08/24/21 TECHNIQUE: Synthesized CC and MLO projections of each breast.Tomosynthesis of each breast in the CC and MLO projections. ADDITIONAL IMAGING: None Computer-aided detection was employed with the [employer] AI 3-D. TISSUE DENSITY: There are scattered areas of fibroglandular density.(BI-RADS category B) FINDINGS: RIGHT BREAST: No suspicious mass. No suspicious calcification. No distortion. Noadditional suspicious right breast findings LEFT BREAST: No suspicious mass. No suspicious calcification. No distortion. Noadditional suspicious left breast findings IMPRESSION: No mammographic evidence of malignancy. No suspicious interval change. A negative mammogram in the presence of a clinically suspicious palpableabnormality does not preclude the possibility of malignancy or alter theindications for biopsy. ASSESSMENT: BI-RADS 1: NEGATIVE RECOMMENDATION(S): 1: Routine screening mammogram BILATERAL in 1 year. [facility] location[facility] at [address], [address] -------- FINAL REPORT -------- Dictated By: Roque Costa Dictated Date: 01/23/2025 08:52 ET Assigned Physician: Roque Costa Reviewed and Electronically Signed By: Roque Costa Signed Date: 01/23/2025 11:38 ET Workstation ID: [id number] Transcribed By: Self Edit Transcribed Date: 01/23/2025 08:52 ET Laney Gutierres MD IMG BI PROCEDURES Final Result * CT Lung Screening (01/03/2025 11:20 AM EDT) Anatomical Region Laterality Modality Chest Computed Tomogra phy 01/08/2025 5:26 PM EDT Impressions 01/08/2025 5:36 PM EDT No suspicious mass or nodule. No suspicious interval change LUNG RADS: Lung-RADS 2: BENIGN S Modifier (Significant or Potentially Significant Findings): None present No suspicious nonpulmonary findings. RECOMMENDATIONS: 12 month screening low dose CT -------- FINAL REPORT -------- Dictated By: Roque Costa Dictated Date: 01/08/2025 17:26 ET Assigned Physician: Roque Costa Reviewed and Electronically Signed By: Roque Costa Signed Date: 01/08/2025 17:36 ET Workstation ID: [id number] Transcribed By: Self Edit Transcribed Date: 01/08/2025 17:26 ET Narrative 01/08/2025 5:36 PM EDT EXAMINATION: CT CHEST WITHOUT CONTRAST LUNG CANCER SCREENING, LOW DOSE CLINICAL INFORMATION: Lung cancer screening. Former smoker. COMPARISON: Portions of previous 12/21/23 TECHNIQUE: Multidetector CT. Examination of the chest. Examination of the chest without IV contrast. Reformatting in the coronal and sagittal planes. Device: [employer] [place] DLP: 169 mGy-cm CTDI: 4.89 Dose optimization was performed including the use of low-dose iterative reconstruction technique with automatic exposure control based on patient size. Type of contrast: None Volume of IV contrast: None Volume of contrast discarded: 0 mL FINDINGS: LUNG: No abnormality of the trachea or mainstem bronchi. LUNG NODULES: There are no suspicious nodules or masses. Unchanged 0.3 cm solid nodule in the posterolateral right lower lobe (3/167). Scattered granulomata. OTHER PULMONARY: There are some mild linear and bandlike opacities but no honeycomb formation. MEDIASTINUM: There are no enlarged mediastinal or hilar lymph nodes. No suspicious abnormalities of the esophagus. CARDIAC: The heart is not enlarged. No pericardial fluid or thickening No coronary calcifications demonstrated. VASCULAR: There is no thoracic aortic aneurysm. The main pulmonary artery is normal caliber PLEURA: There is no pleural fluid or pneumothorax AXILLA/CHEST WALL: There are no enlarged axillary lymph nodes. No chest wall mass demonstrated. VISUALIZED UPPER ABDOMEN: No suspicious abnormality on limited assessment of the visualized upper abdomen. Unchanged cyst in the central aspect of the liver. MUSCULOSKELETAL: No suspicious focal bony lesion demonstrated. Mild compression deformity superior right side of L2. Unchanged mild compression deformity superior endplate in the region of T7. Calcified osteophyte at T4/T5. Procedure Note Roque Costa MD - 01/08/2025 EXAMINATION: CT CHEST WITHOUT CONTRAST LUNG CANCER SCREENING, LOW DOSE CLINICAL INFORMATION: Lung cancer screening. Former smoker. COMPARISON: Portions of previous 12/21/23 TECHNIQUE: Multidetector CT. Examination of the chest. Examination of the chest without IV contrast. Reformatting in the coronal and sagittal planes. Device: [employer] [place] DLP: 169 mGy-cm CTDI: 4.89 Dose optimization was performed including the use of low-dose iterativereconstruction technique with automatic exposure control based on patientsize. Type of contrast: None Volume of IV contrast: None Volume of contrast discarded: 0 mL FINDINGS: LUNG: No abnormality of the trachea or mainstem bronchi. LUNG NODULES: There are no suspicious nodules or masses. Unchanged 0.3 cm solid nodule in the posterolateral right lower lobe(3/167). Scattered granulomata. OTHER PULMONARY: There are some mild linear and bandlike opacities but nohoneycomb formation. MEDIASTINUM: There are no enlarged mediastinal or hilar lymph nodes. Nosuspicious abnormalities of the esophagus. CARDIAC: The heart is not enlarged. No pericardial fluid or thickening No coronary calcifications demonstrated. VASCULAR: There is no thoracic aortic aneurysm. The main pulmonary arteryis normal caliber PLEURA: There is no pleural fluid or pneumothorax AXILLA/CHEST WALL: There are no enlarged axillary lymph nodes. No chestwall mass demonstrated. VISUALIZED UPPER ABDOMEN: No suspicious abnormality on limited assessmentof the visualized upper abdomen. Unchanged cyst in the central aspect ofthe liver. MUSCULOSKELETAL: No suspicious focal bony lesion demonstrated. Mildcompression deformity superior right side of L2. Unchanged mildcompression deformity superior endplate in the region of T7. Calcifiedosteophyte at T4/T5. IMPRESSION: No suspicious mass or nodule. No suspicious interval change LUNG RADS: Lung-RADS 2: BENIGN S Modifier (Significant or Potentially Significant Findings): Nonepresent No suspicious nonpulmonary findings. RECOMMENDATIONS: [address] low dose [address] -------- FINAL REPORT -------- Dictated By: Roque Costa Dictated Date: 01/08/2025 17:26 ET Assigned Physician: Roque Costa Reviewed and Electronically Signed By: Roque Costa Signed Date: 01/08/2025 17:36 ET Workstation ID: [id number] Transcribed By: Self Edit Transcribed Date: 01/08/2025 17:26 ET Trudy Shah MD [facility] [place] CT PROCEDURES Final Result from Last 3 Months Insurance MEDICARE MEDICAID [place] Care Teams Supervisor Keymodule Assembly Relationship Specialty Start Date End Date Laney Gutierres MD [address] [place] [address] PCP - General Public Health Technologist 09/25/24
--- OUTSIDE RECORDS SUMMARY | 2025-03-22 20:04 | XMS_ITS | Encounter Summary ---
Author Organization [employer] Address [address] [facility] 7t [place] [address] Care Team Providers Care Nanny Caregiver Name Role Phone Laney Gutierres MD Primary Care Provider [phone] Encounter Details Date Type Department Care Team (Late st Contact Info) Description 01/09/2025 Orders Only [facility] [address] [place] [address] Provider, MD Catherine Social History Tobacco Use Types Packs/Day Years [...] Description 05/15/2025 9:00 AM EST Office Visit [facility] [address] [place] [address] Laney Gutierres MD [address] [place] [address] documented as of this encounter Procedures Procedure Name Priority Date/Time Associated Diagnosis Comments CT LUNG SCREENING Routine 01/03/2025 3:26 PM EDT documented in this encounter Results * CT Lung Screening Low dose (01/03/2025 3:26 PM EDT) Anatomical Region Laterality Modality Lung Computed Tomogra phy us Historical Provider MD ADEN CT PROCEDURES Final R esult documented in this encounter Visit Diagnoses Not on filedocumented in this encounter Additional Health Concerns Assessment Noted Time PHQ-9 Depression Total Score: 2 09/20/19 25 3:01 PM EDT documented as of this encounter Care Teams Nanny Caregiver Relationship Specialty Start Date End Date Laney Gutierres MD [address] [place] [address] PCP - General Family Medicine 06/28/24 documented as of this encounter
--- OUTSIDE RECORDS SUMMARY | 2025-03-22 20:04 | XMS_ITS ---
Author Organization [facility] [employer] Address [address] [facility] [place] [address] Phone Care Team Providers Care Electric Motor Repair Supervisor Name Role Phone Laney Gutierres MD Primary Care Provider [phone] Active Problems Problem Noted Date Diagnosed Date Arthritis of left knee 11/10/2024 Rash 11/10/2024 Uncomplicated alcohol dependence (CMS/HCC V24, C [place]/HCC V28) 09/19/2024 Obstructive sleep apnea 11/21/2023 Benign [...] drip 03/17/2018 Pulmonary nodule 03/17/2018 Malignant melanoma ([facility]/HCC V24, CMS/HCC V28) Overview (02/25/2025): Malignant melanoma Current Treatment and Therapy Plans No current plan information found. Past Treatment and Therapy Plans No past plan information found. Lifetime Dose Tracking * Chemical Lifetime Dose Automatic Entry Manual Entr y Radiation (DLP) 169.27 mGy-cm 169.27 mGy-cm 0 mGy-cm CTDIvol 4.89 mGy 4.89 mGy 0 mGy
--- OUTSIDE RECORDS SUMMARY | 2025-03-22 20:04 | XMS_ITS | Clinical Summary ---
Author Organization [employer] Address [address] [facility] 7t [place] [address] Care Team Providers Care Chief Station Engineer Name Role Phone Laney Gutierres MD Primary Care Provider [phone] Allergies Active Allergy Reactions Criticality Noted Date Comments Aspirin 07/24/2019 Azithromycin 05/22/2018 Cefprozil Hives 11/21/2023 Codeine Itching 07/06/2017 Other Reaction(s): idiopathic effect- very awake Erythromycin Rash Low 02/15/2018 Other Reaction(s): acidic feeling in stomach, severe diarrhea Hydrocodone-Acetaminophen 11/28/2023 Other Reaction(s): does not control pain Lisinopril Cough 01/14/2023 Macrolides And Ketolides Other 09/23/2009 Difficulty swallowing Meperidine Itching 07/06/2017 Other Reaction(s): unsure Methocarbamol 04/03/2018 Reaction not mentioned Oxycodone Itching,Rash Low 07/24/2019 Oxycodone-Acetaminophen Itching 11/28/2023 Oxycodone-Aspirin Itching 07/06/2017 Oxycodone-Aspirin Hives 11/21/2023 Penicillins Rash,Hives Medium 07/06/2017 Sulfa Antibiotics Headache,Other 09/23/2009 Headache Reaction not mentioned Medications Blood Pressure Monitor kit 1 kit 2 times daily. 1 kit 07/24/19 23 Active hydrocortisone 2.5 % ointment APPLY TO ANGLE OF LIPS AND POSTERIOR AURICULAR AREA TWICE A DAY NEEDED 05/02/19 25 Active ketoconazole (NIZOral) 2 % cream APPLY TO ANGLE OF LIPS 2 TIMES A DAY NEEDED 05/02/19 25 Active lamoTRIgine (LaMICtal) 150 MG tabletIndication s:Chronic bipolar disorder (CMS/HCC) (HCC) Take 1 tablet (150 mg) by mouth at bedtime. 90 tablet 3 09/20/19 25 Active losartan (Cozaar) 25 MG tabletIndication s:Essential hypertension Take 1 tablet (25 mg) by mouth Once per day. 90 tablet 3 09/20/19 25 Active oxybutynin XL (Ditropan-XL) 15 MG 24 hr tabletIndication s:Stress incontinence of urine Take 1 tablet (15 mg) by mouth Once per day. Do not crush, chew, or split. 90 tablet 3 09/20/19 25 026 Active buPROPion XL (Wellbutrin XL) 300 MG 24 hr tabletIndication s:Class 1 obesity without serious comorbidity with body mass index (BMI) of 31.0 to 31.9 in adult, unspecified obesity type Take 1 tablet (300 mg) by mouth in the morning. 90 tablet 3 09/20/19 25 Active ketoconazole (NIZOral) 2 % shampoo APPLY TO SCALP TWICE WEEKLY, LEAVE ON 5 MINUTES THEN WASH OFF 12/06/19 25 Active bisacodyl (Dulcolax) 5 MG EC tablet Take 2 tablets by mouth right before beginning bowel prep. See instructions provided by the office 02/19/20 25 Active polyethylene glycol (GoLYTELY) 236 g solution Take 4L by mouth once for one dose. May substitue any PEG. Starting at 2PM the day before your procedure drink 1 8oz glasses at your own pace until you complete half of the gallon. Finish 2nd half of the gallon at 8PM. 02/19/20 25 Active naltrexone (Depade) 50 MG tablet Take 1 tablet (50 mg) by mouth Once per day. 30 tablet 11 03/22/20 25 Active metFORMIN (Glucophage) 500 MG tabletIndication s:Prediabetes Take 1 tablet (500 mg) by mouth with breakfast. 90 tablet 3 03/22/20 25 026 Active clotrimazole-bet amethasone (Lotrisone) cream Apply topically 2 times daily for 14 days. 30 g 03/22/20 25 025 Active acamprosate (Campral) 333 MG EC tabletIndication s:Uncomplicated alcohol dependence (CMS/HCC) ([facility]) TAKE 2 TABLETS BY MOUTH THREE TIMES DAILY. DO NOT CRUSH, CHEW OR SPLIT. 180 tablet 10/27/19 25 025 Discontin ued(Cost of medicatio n) Active Problems Problem Noted Date Diagnosed Date Screening for cervical cancer 03/22/2025 Malignant melanoma, unspecified site ([facility]) 1 05/22/2024 Assessment & Plan (03/22/2025 4:43 PM EST): Up to date on biannual screening Arthritis of left knee 11/10/2024 Assessment & Plan (01/07/2025 4:54 PM EDT): Would benefit from intermittent use of knee brace when knee feels unstable Assessment & Plan (11/12/2024 8:34 AM EDT): Most likely OA, exacerbated after fall last month. Advised to take a break form regular gym exercises for at least 3-4w, will refer to PT Take Tylenol as needed and diclofenac gel. She has taken ibuprofen in the past with no side effects. Ordered x-rays and follow-up with PCP Rash 11/10/2024 Assessment & Plan (11/10/2024 1:13 PM EDT): On the back of her neck, seems to be eczematous dermatitis, however given that he is on 1 side only, I told her to watch for zoster symptoms if rash gets worse extends towards her shoulder, it is painful or is associated to severe headache or fever. She should return to ED or call her PCP for Rx Valtrex within the next 72 hours hours if the symptoms get worse. 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 23 Chronic low back pain 06/23/2022 Body mass index (BMI) 31.0-31.9, adult 3 Status post bilateral salpingo-oophorectomy (BSO ) 06/23/2022 Multiple pulmonary nodules 12/22/2020 Migraine 04/03/2018 Back pain 04/03/2018 ADD (attention deficit disorder) 04/03/2018 History of malignant melanoma 02/15/2012 Overview (06/23/2022): Malignant melanoma Encounters Date Type Department Care Team Description 03/22/2025 4:00 PM EST Procedure Visit [facility] [address] [place] [address] Laney Gutierres MD Screening for cervical cancer (Primary Dx); Malignant melanoma, unspecified site (CMS/HCC) (HCC); Prediabetes 03/22/2025 Travel 03/07/2025 10:00 AM EST Office Visit [facility] OPTOMET[facility] [address] [place] [address] Zahra Hall, OD Corneal scar, left eye (Primary Dx); Status post LASIK surgery of both eyes; Cortical cataract of both eyes; Hyperopia of both eyes with astigmatism and presbyopia 03/07/2025 Travel 03/04/2025 Orders Only [facility] [address] [place] [address] Catherine Montano MD 02/22/2025 Orders Only [facility] [address] [place] [address] Laney Gutierres MD Arthritis of left knee (Primary Dx) 02/21/2025 Telephone [facility] [address] [place] [address] Laney Gutierres MD Referral 01/09/2025 Orders Only [facility] [address] [place] [address] Catherine Montano MD 01/08/2025 Telephone [facility] [address] [place] [address] Laney Gutierres MD Durable Medical Equipment (DME: Hinged Knee Brace) 01/04/2025 2:15 PM EDT Office Visit [facility] [address] [place] [address] Laney Gutierres MD Uncomplicated alcohol dependence (CMS/HCC) (Primary Dx); Encounter for screening mammogram for malignant neoplasm of breast; Colon cancer screening; History of ovarian cancer; Essential hypertension; Status post bilateral salpingo-oophorectomy (BSO); History of malignant melanoma; Chronic bipolar disorder (CMS/HCC); Obstructive sleep apnea; Arthritis of left knee 01/04/2025 Travel 01/03/2025 Telephone [facility] [address] [place] [address] Laney Gutierres MD Chart Prep from Last 3 Months Immunizations Immunization Administration Dates Next Due INFLUENZA VACCINE QUADRIVALE NT RECOMBINANT PRESERVATIVE FREE RIV4 01/14/2020 Influenza injectable quadriv alent preservative free 03/06/2023,02/01/2022,04/02/2021,2018,02/04/2017,01/18/2016,01/12/2015 Influenza, High Dose Seasona l, Preservative Free 01/04/2025,02/21/2024 Pneumococcal Conjugate PCV 20 11/21/2023 RSV Adjuvant 02/04/2023 Tdap 02/01/2022 Family History Medical History Relation Name Comments Pulmonary fibrosis Father Breast cancer Maternal Grandmother Aneurysm Mother Mitral valve prolapse Mother Stroke Mother Relation Name Status Comments Father Maternal Grandmother Mother Social History Tobacco Use Types Packs/Day Years Used Date Smoking Tobacco: Former Cigarettes 1 33 0 06/13/1979 - 06/19/2012 Passive Smoke Exposure: Past Smokeless Tobacco: Never Tobacco Cessation:Counseling Given: Not Answered Alcohol Use Standard Drinks/Week Comments Yes 14 [...] not to disclose 2021 10:21 AM EDT Last Filed Vital Signs Vital Sign Reading [...] Mass Index 31.63 03/22/2025 4:20 PM EST Plan of Treatment Upcoming Encounters Date Type Department Care Team (Late st Contact Info) Description 05/15/2025 9:00 AM EST Office Visit [facility] [address] [facility] [place] [address] Laney Gutierres MD [address] [place] [address] Health Maintenance Due Date Last Done Comments CT Colonography 1958 Diabetes: Hemoglobin A1C 1958 FIT DNA/Cologuard 1958 FIT 1958 FOBT 1958 Sigmoidoscopy 1958 Derm Melanoma Skin Check 03/29/1959 Hepatitis C Screening 1976 Zoster Vaccines (1 of 2) 2008 COVID-19 Vaccine ( season) 2025 01/04/2025, 02/21/2024, 03/21/2023, Additional history exists HPV/Cotest 08/18/2025 Pap Smear 08/18/2025 08/18/2022 Alcohol/Substance Use Screening 09/19/2025 09/19/2024 Depression Screening 09/19/2025 09/19/2024, 09/20/19 25 SDOH Screening 09/19/2025 09/19/2024 Lung Cancer Screening 01/03/2026 01/03/2025, 024 Mammogram 01/23/2026 01/23/2025, 11/2024, 11/17/2023 Tobacco Screening 03/22/2026 03/22/2025 Lipid Panel 06/24/2027 06/23/2022 Colonoscopy 03/04/2030 03/04/2025, 02/16, 03/04/2025 Colorectal Cancer Screening 03/04/2030 DTaP/Tdap/Td Vaccines (2 - Td or Tdap) 02/02/2032 02/01/2022 RSV Patients and Patients Aged 60 years or older Completed 02/04/2023 Pneumococcal Vaccine: 50+ Years Completed [...] patient's age to complete this topic Meningococcal Vaccine Aged Out No bethany nancy eligible based on patient's age to complete this topic RSV under 20 months Aged Out No longe r eligible based on patient's age to complete this topic Rotavirus Vaccines Aged Out No longer eligible based on patient's age to complete this topic Procedures Procedure Name Priority Date/Time Associated Diagnosis Comments COLONOSCOPY Routine 03/04/2025 CT LUNG SCREENING Routine 01/03/2025 3:2 6 PM EDT LDCT LUNG SCREENING Routine 01/06/2024 BI MAMMOGRAM DIAGNOSTIC TOMOSYNTHESIS BILATERAL Routine 11/17/2023 Encounter for screening mammogram for malignant neoplasm of breast HM PAP/HPV Routine 08/18/2022 LIPID PANEL, STANDARD Routine 06/23/2022 11:22 AM EST Routine adult health maintenance from Last 3 Months or Most Recently Relevant to Health Maintenance Results * Colonoscopy (03/04/2025) Anatomical Region Laterality Modality Endoscopy Historical Provider ENDOSCOPY PROCEDURE ORDER CECILY Final Result * CT Lung Screening Low dose (01/03/2025 3:26 PM EDT) Anatomical Region Laterality Modality Lung Computed Tomogra phy us Historical Provider IMG CT PROCEDURES Final R esult * CT Lung Screening Low dose (01/06/2024) Anatomical Region Laterality Modality Lung Computed Tomogra phy Historical Provider IMG CT PROCEDURES Final R esult * Hm Pap Smear (08/18/2022) Pap Negative for intraephithelial lesion or malignancy Negative for intraephithelial lesion or malignancy, Other Historical Provider MD HEALTH MAINTENANCE Final Result * (ABNORMAL) Lipid Panel, Standard (06/23/2022 11:22 AM EST) Cholesterol, Total 205(H) <200 mg/dL [facility] HDL Cholesterol 71 > OR = 50 mg/dL [facility] Triglycerides 122 <150 mg/dL [facility] LDL Cholesterol 111(H) mg/dL (calc) [facility] Comment: Reference range: <100 Desirable range <100 mg/dL for primary prevention; <70 mg/dL for patients with CHD or diabetic patients with > or = 2 CHD risk factors. LDL-C is now calculated using the Roslyn calculation, which is a validated novel method providing better accuracy than the Friedewald equation in the estimation of LDL-C. Phuc SS et al. WILFRED. 2013;310(19): 5296-8389 (http://education.Moka5.com/faq/NQA492) Chol/HDLC Ratio 2.9 <5.0 (calc) [facility] Non-HDL Cholesterol 134(H) <130 mg/dL (calc) [facility] Comment: For patients with diabetes plus 1 major ASCVD risk factor, treating to a non-HDL-C goal of <100 mg/dL (LDL-C of <70 mg/dL) is considered a therapeutic option. Blood Venous blood specimen / Unknown 06/23/2022 11:22 AM EST 06/23/2022 11:23 AM EST Narrative [facility] - 06/24/2022 4:58 PM EST FASTING:NO FASTING: NO Sofia Huertas DIRECTOR OF MATH LAB BLOOD ORDERABLES Final Resu lt [facility] [address] [facility], [facility], [place] [address] [facility] [address] [facility], ([address]) [place] [address] from Last 3 Months or Most Recently Relevant to Health Maintenance Insurance MEDICARE Member Subscriber Plan / Payer (Ef fective 2024-Present) Name:Elmira Bellamy Member ID:[id number] Relation to Subscriber:Self Name:PawanphiElmira Subscriber ID:[id number] Payer ID:STATE Group ID:Not on file Type:Medicare Address: [facility] [address] [address] [facility] Care Teams Chief Station Engineer Relationship Specialty Start Date End Date Laney Gutierres MD [address] [place] [phone] PCP - General Family Medicine 06/28/24
--- OUTSIDE RECORDS SUMMARY | 2025-03-22 20:04 | XMS_ITS | Encounter Summary ---
Author Organization [facility] Address [address] [place] [address] Care Team Providers Care After School Driver Name Role Phone Laney Gutierres MD Primary Care Provider [phone] Reason for Visit * Reason Onset Date Comments Sleep Study 02/21/2025 Encounter Details Date Type Department Care Team ([facility] st Contact Info) Description 02/21/2025 Telephone Pulmonology [facility] [address] [facility] [address] [place] [address] Aquiles Johnson MD [address] [place] [phone] Social History Tobacco Use Types Packs/Day Years Used Date Smoking Tobacco: Former Smokeless Tobacco: Never Alcohol Use Standard Drinks/Week Comments Yes 0 (1 standard drink = 0.6 oz pur e alcohol) Comments No Sex and Gender Information Value Date Recorded Sex Assigned at Female 07/02/2024 11:25 AM EDT Legal Sex Female 8:29 PM EST Gender Identity Female 07/02/2024 11:25 AM EDT Sexual Orientation Not on file documented as of this encounter Progress Notes * Todd Helton MA - 03/22/2025 2:51 PM EST Third attempt LVM to call for a f/u appt. * Todd Helton MA - 03/19/2025 1:49 PM EST Second attempt to contact pt. LVM for pt to call back. * Pilar Flores MA - 02/22/2025 9:51 AM EST Left vm to call back the office to schedule a follow up with Dr Johnson we will need a face to face * Janae Montilla - 02/21/2025 4:22 PM EST Patient called [facility] and they stated that patient needs a sleep study done within the last 12 months. Please send an urgent referral to [facility] as her CPAP has been broken for 3 weeks. documented in this encounter Plan of Treatment Upcoming Encounters Date Type Department Care Team (Late st Contact Info) Description 05/30/2025 8:45 AM EST Office Visit Pulmonology - [place] [address] [facility] [address] [place] [phone] Aquiles Johnson MD [address] [place] [phone] documented as of this encounter Visit Diagnoses Not on filedocumented in this encounter Care Teams After School Driver Relationship Specialty Start Date End Date Laney Gutierres MD [address] [place] [address] PCP - General Meter Reader Inspector 09/25/24 documented as of this encounter
--- OUTSIDE RECORDS SUMMARY | 2025-03-22 20:04 | XMS_ITS | Encounter Summary ---
Author Organization [facility] Address [address] [place] [address] Care Team Providers Care Replacer Name Role Phone Laney Gutierres MD Primary Care Provider [phone] Encounter Details Date Type Department Care Team ([facility] st Contact Info) Description 03/01/2025 Telephone Gastroenterology - [address] [facility] [address] [place] [phone] Huy Machado MD [address] [address] Social History Tobacco Use Types Packs/Day Years Used Date Smoking Tobacco: Former Smokeless Tobacco: Never Alcohol Use Standard Drinks/Week Comments Yes 0 (1 standard drink = 0.6 oz pur e alcohol) Interpersonal Safety Answer Date Record ed Physical Abuse Unrecognized value 03/04/2025 Verbal Abuse Unrecognized value 03/04/2025 Comments No Sex and Gender Information Value Date Recorded Sex Assigned at Female 07/02/2024 11:25 AM EDT Legal Sex Female 8:29 PM EST Gender Identity Female 07/02/2024 11:25 AM EDT Sexual Orientation Not on file documented as of this encounter Progress Notes * Maria Antonia Monzon - 03/01/2025 2:20 PM EST Pt is calling back stating it is okay to move her colon up to a earlier time. Pt states anytime on 03/04 earlier works better documented in this encounter Plan of Treatment Upcoming Encounters Date Type Department Care Team (Late st Contact Info) Description 05/30/2025 8:45 AM EST Office Visit Pulmonology - [place] [address] [place] [address] Aquiles Johnson MD [address] [place] [phone] documented as of this encounter Visit Diagnoses Not on filedocumented in this encounter Care Teams Replacer Relationship Specialty Start Date End Date Laney Gutierres MD [address] [place] [phone] PCP - General Heavy Equipment Field Mechanic 09/25/24 documented as of this encounter
--- OUTSIDE RECORDS SUMMARY | 2025-03-22 20:04 | XMS_ITS | Encounter Summary ---
Author Organization [employer] Address [address] [place] [address] Care Team Providers Care Founder Ceo & President Name Role Phone Sofia Huertas Primary Care Provider [phone] Rosalia Richard NP Primary Care Provider [phone] Laney Gutierres MD Primary Care Provider [phone] Encounter Details Date Type Department Care Team (Late st Contact Info) Description 11/09/2023 Orders Only [facility] [address] [place] [address] Sofia Huertas FNP [address] [place], [place] [phone] Social History Tobacco Use Types Packs/Day Years [...] Description 05/15/2025 9:00 AM EST Office Visit [facility] [address] [place] [address] Laney Gutierres MD [address] [place] [address] documented as of this encounter Visit Diagnoses Not on filedocumented in this encounter Additional Health Concerns Assessment Noted Time PHQ-9 Depression Total Score: 1 06/24/19 23 10:43 AM EST documented as of this encounter Care Teams Founder Ceo & President Relationship Specialty Start Date End Date Sofia Huertas FNP [address] [place] [address] PCP - General Family Medicine 06/23/22 12/15/23 Rosalia Richard NP [address] [place] [address] [place] [address] PCP - General Family Medicine 12/16/23 06/27/24 Laney Gutierres MD [address] [place] [address] PCP - General Family Medicine 06/28/24 documented as of this encounter
--- OUTSIDE RECORDS SUMMARY | 2025-03-22 20:04 | XMS_ITS | Encounter Summary ---
Author Organization [employer] Address [address] [facility] [address] [place] [address] Care Team Providers Care Solution Engineer Name Role Phone Sofia Huertas Primary Care Provider [phone] Rosalia Richard NP Primary Care Provider [phone] Laney Gutierres MD Primary Care Provider [phone] Reason for Visit * Reason Onset Date Comments Referral 10/06/2023 Encounter Details Date Type Department Care Team (Late st Contact Info) Description 10/06/2023 Telephone [facility] [address] [place], [place] [phone] Sofia Huertas FNP [address] [place], [place] [phone] Referral Social History Tobacco Use Types Packs/Day [...] a week ago. Please contact pt at [phone] documented in this encounter Plan of Treatment Upcoming Encounters Date Type Department Care Team (Late st Contact Info) Description 05/15/2025 9:00 AM EST Office Visit [facility] [address] [place] [address] Laney Gutierres MD [address] [place] [address] documented as of this encounter Visit Diagnoses Not on filedocumented in this encounter Additional Health Concerns Assessment Noted Time PHQ-9 Depression Total Score: 1 03/08/20 23 10:43 AM EST documented as of this encounter Care Teams Solution Engineer Relationship Specialty Start Date End Date Sofia Huertas FNP [address] [place] [address] PCP - General Family Medicine 06/23/22 12/15/23 Rosalia Richard NP [address] [place] [address] PCP - General Family Medicine 12/16/23 06/27/24 Laney Gutierres MD [address] [place] [address] PCP - General Family Medicine 06/28/24 documented as of this encounter
--- OUTSIDE RECORDS SUMMARY | 2025-03-22 20:04 | XMS_ITS | Encounter Summary ---
Author Organization [employer] Address [address] [facility] 7[address] [place] [address] Care Team Providers Care Staff Readiness Officer Name Role Phone Laney Gutierres MD Primary Care Provider [phone] Reason for Referral * Consultation (Routine) - Closed Specialty Diagnoses / Procedures Referred By Contac t Referred To Contact Physical Therapy Diagnoses Arthritis of left knee Laney Gutierres MD [address] [place] [address] Phone: tel: fax: [facility] - [address] [address] Phone: tel: fax: Referral ID Status Reason Start Date Expiration Date V isits Requested Visits Authorized [id number] Closed Specialty Services Required 02/22/2025 02/22/2026 1 1 Encounter Details Date Type Department Care Team (Late st Contact Info) Description 02/22/2025 Orders Only [facility] [address] [place], [place] [phone] Laney Gutierres MD [address] [place], [place] [phone] Arthritis of left knee (Primary Dx) Social History Tobacco Use Types Packs/Day Years [...] your housing situation today? I have elin yocasta 10/28/[address] you li [...] Description 05/15/2025 9:00 AM EST Office Visit [facility] [address] [place] [address] Laney Gutierres MD [address] [place] [address] Scheduled Referrals Name Type Priority Associated Diagnoses Orde r Schedule Referral to Physical Therapy Outpatient Referral Routine Arthritis of left knee Expected: 02/22/2025 (Approximate), Expires: 02/22/2026 documented as of this encounter Visit Diagnoses Diagnosis Arthritis of left knee- Primary documented in this encounter Additional Health Concerns Assessment Noted Time PHQ-9 Depression Total Score: 2 09/20/19 25 3:01 PM EDT documented as of this encounter Care Teams Staff Readiness Officer Relationship Specialty Start Date End Date [place] [address] PCP - General Family Medicine 06/28/24 documented as of this encounter
--- OUTSIDE RECORDS SUMMARY | 2025-03-22 20:04 | XMS_ITS | Encounter Summary ---
Author Organization [employer] Address [address] [facility] 7t [place] [address] Care Team Providers Care Metal Mockup Maker Name Role Phone Laney Gutierres MD Primary Care Provider [phone] Encounter Details Date Type Department Care Team (Late st Contact Info) Description 03/04/2025 Orders Only [facility] [address] [place] [address] Provider, MD Catherine Social History Tobacco Use [...] the past 12 months, has t he [employer], gas, oil or water [employer] threatened to shut off services in your [...] Description 05/15/2025 9:00 AM EST Office Visit [facility] [address] [place] [address] Laney Gutierres MD [address] [place] [phone] documented as of this encounter Procedures Procedure Name Priority Date/Time Associated Diagnosis Comments COLONOSCOPY Routine 03/04/2025 documented in this encounter Results * Colonoscopy (03/04/2025) Anatomical Region Laterality Modality Endoscopy us Historical Provider ENDOSCOPY PROCEDURE ORDER CECILY Final Result documented in this encounter Visit Diagnoses Not on filedocumented in this encounter Additional Health Concerns Assessment Noted Time PHQ-9 Depression Total Score: 2 09/20/19 25 3:01 PM EDT documented as of this encounter Care Teams Metal Mockup Maker Relationship Specialty Start Date End Date Laney Gutierres MD [address] [place] [id number] PCP - General Family Medicine 06/28/24 documented as of this encounter
--- OUTSIDE RECORDS SUMMARY | 2025-03-22 20:04 | XMS_ITS | Encounter Summary ---
Author Organization [employer] Address [address] [facility] [address] 7[address] [place] [address] Care Team Providers Care Color Stripper Name Role Phone Sofia Huertas Primary Care Provider [phone] Rosalia Richard NP Primary Care Provider [phone] Laney Gutierres MD Primary Care Provider [phone] Encounter Details Date Type Department Care Team (Late st Contact Info) Description 08/09/2022 Orders Only [facility] [address] [place], [place] [phone] Sofia Huertas FNP [address] [place], [place] [phone] Routine adult health maintenance (Primary Dx) Social History Tobacco Use Types [...] Recorded Patient Health Questionnaire-9 Score 1 06/23/2022 Depression Answer Date Recorded Patient Health Questionnaire-2 Score 1 06/23/2022 Comments Unknown Sex and Gender Information Value Date Recorded Sex Assigned at Female 02/15/2022 10:21 AM EDT Legal Sex Female 10:21 AM EDT Gender Identity Female 02/15/2022 10:21 AM EDT Sexual Orientation Choose not to disclose 2021 10:21 AM EDT COVID-19 Exposure Response Date Recorded In the last 10 days, have yo u been in contact with someone who was confirmed or suspected to have Coronavirus/COVID-19? No / Unsure 07/26/2022 3:13 PM EDT documented as of this encounter Plan of Treatment Upcoming Encounters Date Type Department Care Team (Late st Contact Info) Description 05/15/2025 9:00 AM EST Office Visit [facility] [address] [place] [address] Laney Gutierres MD [address] [place] [phone] documented as of this encounter Visit Diagnoses Diagnosis Routine adult health maintenance- Primary documented in this encounter Additional Health Concerns Assessment Noted Time PHQ-9 Depression Total Score: 1 06/24/19 23 10:43 AM EST documented as of this encounter Care Teams Color Stripper Relationship Specialty Start Date End Date Sofia Huertas FNP [address] [place] [id number] PCP - General Family Medicine 06/23/22 12/15/23 Rosalia Richard NP [address] [place] [address] PCP - General Family Medicine 12/16/23 06/27/24 Laney Gutierres MD [address] [place] [phone] PCP - General Family Medicine 06/28/24 documented as of this encounter
--- OUTSIDE RECORDS SUMMARY | 2025-03-22 20:04 | XMS_ITS | Encounter Summary ---
Author Organization [facility] Address [address] [place] [address] Care Team Providers Care Special Forces Warrant Officer Name Role Phone Laney Gutierres MD Primary Care Provider [phone] Encounter Details Date Type Department Care Team ([facility] Contact Info) Description 03/05/2025 Results Follow-Up Gastroenterology - [address] [facility] [address] [facility] [address] [place] [phone] Huy Machado MD [address] [facility] [address] [place] [address] Social History Tobacco Use Types Packs/Day Years [...] on file documented as of this encounter Plan of Treatment Upcoming Encounters Date Type Department Care Team ([facility] Contact Info) Description 05/30/2025 8:45 AM EST Office Visit Pulmonology - [place] [address] [facility] 200 [place] [phone] Aquiles Johnson MD [address] [place] [phone] documented as of this encounter Visit Diagnoses Not on filedocumented in this encounter Care Teams Special Forces Warrant Officer Relationship Specialty Start Date End Date Laney Gutierres MD [address] [place] [phone] PCP - General Chinchilla Farmer 09/25/24 documented as of this encounter
--- OUTSIDE RECORDS SUMMARY | 2025-03-22 20:04 | XMS_ITS | Encounter Summary ---
Author Organization [employer] Address [address] [facility] [address] 7[address] [place] [address] Care Team Providers Care Associate Professor Of Pathology Name Role Phone Sofia Huertas Primary Care Provider [phone] Rosalia Richard NP Primary Care Provider [phone] Laney Gutierres MD Primary Care Provider [phone] Reason for Visit * Reason Onset Date Comments Referral 08/05/2022 Encounter Details Date Type Department Care Team (Late st Contact Info) Description 08/05/2022 Telephone [facility] [address] [place], [place] [phone] Sofia Huertas FNP [address] [place], [place] [phone] Referral Social History Tobacco Use Types Packs/Day [...] PM EDT documented as of this encounter Miscellaneous Notes * Telephone Encounter - Dolores Black RN - 08/06/2022 1:48 PM EDT Placed call to [facility] regarding message below. Pt is scheduled for routine PAPbut need a new referral to be seen in their office. Office informed message would be sent to PCP for review. * Telephone Encounter - Asael Banks - 08/05/2022 3:11 PM EDT Tc from pt requesting a referral to be seen by an field service [place] [address] documented in this encounter Plan of Treatment Upcoming Encounters Date Type Department Care Team (Late st Contact Info) Description 05/15/2025 9:00 AM EST Office Visit [facility] [address] [place] [address] Laney Gutierres MD [address] [place] [address] documented as of this encounter Visit Diagnoses Not on filedocumented in this encounter Additional Health Concerns Assessment Noted Time PHQ-9 Depression Total Score: 1 06/24/19 10:43 AM EST documented as of this encounter Care Teams Associate Professor Of Pathology Relationship Specialty Start Date End Date Sofia Huertas FNP [address] [place] [address] PCP - General Family Medicine 06/23/22 12/15/23 Rosalia Richard NP [address] [place] [address] PCP - General Family Medicine 12/16/23 06/27/24 Laney Gutierres MD [address] [place] [address] PCP - General Family Medicine 06/28/24 documented as of this encounter
--- OUTSIDE RECORDS SUMMARY | 2025-03-22 20:04 | XMS_ITS | Encounter Summary ---
Author Organization [employer] Address [address] [facility] [address] 7[address] [place] [address] Care Team Providers Care Shirt Marker Name Role Phone Laney Gutierres MD Primary Care Provider [phone] Reason for Visit * Reason Onset Date Comments Referral 02/21/2025 Encounter Details Date Type Department Care Team ([facility] st Contact Info) Description 02/21/2025 Telephone [facility] [address] [place], [place] [phone] Laney Gutierres MD [address] [place], [place] [phone] Referral Social History Tobacco Use Types Packs/Day [...] your housing situation today? I have elin urst 10/28/[address] you li [...] encounter Miscellaneous Notes * Telephone Encounter - Paige Jordan RN - 02/21/2025 4:31 PM EST Noted PT referral last placed in October for L knee. TC returned to pt., pt. 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 Pt. Reports she has been swimming to get strength and wishes to start PT at [facility] in [place] Address: [address] [place] [address] This is close to her job. Informed pt. Request would be sent to PCP to place new referral specifying this location and pt. Should receive letter in the mail within the next 1-2 weeks. Pt. Agrees to plan. * Telephone Encounter - Elfego Gomes - 02/21/2025 3:42 PM EST Tc from pt requesting for referral for PT to be sent to a place [facility] [place] [facility] Contact pt at [phone] documented in this encounter Plan of Treatment Upcoming Encounters Date Type Department Care Team (Late st Contact Info) Description 05/15/2025 9:00 AM EST Office Visit [facility] [address] [place] [phone] Laney Gutierres MD [address] [place], [place] [phone] documented as of this encounter Visit Diagnoses Not on filedocumented in this encounter Additional Health Concerns Assessment Noted Time PHQ-9 Depression Total Score: 2 09/20/19 3:01 PM EDT documented as of this encounter Care Teams Shirt Marker Relationship Specialty Start Date End Date Laney Gutierres MD [address] [place] [phone] PCP - General Family Medicine 06/28/24 documented as of this encounter
== END 2025-03-22 18:48 | disposition home or self-care (01) ==
LOC: HO.HHCLNP 18:47
PROVIDERS: Visit Provider General Practice
DX: Z12.4 Encounter for screening for malignant neoplasm of cervix (principal)
CPT/HCPCS: 87626; 88175